=== PATIENT | female | born 1970 | race Caucasian/White ===

== ENCOUNTER 2016-07-14 07:41 | Emergency (ER) | payer BC ==
--- NOTE | 2016-07-14 07:55 | Emergency Department Record ---
History of Present Illness - General Chief complaint: Flu Like Symptoms Stated complaint: I HAVE THE FLU Time Seen by Provider: 07/14/16 07:53 Source: Patient Mode of Arrival: Ambulatory Limitations: No limitations - History of Present Illness Initial comments: The patient is here due to vomiting and diarrhea for about 24 hours. She was diagnosed with Influenza 5 days ago and has been taking Tamiflu up until yesterday. The respiratory symptoms have mainly resolved and she now thinks she has the GI bug. She is having some lower AP but that has been a chronic problem for her due to a hx of Crohn's dz and Gastric Bypass. She recently did have an EGD and Colonoscopy and was diagnosed with Crohn's Dz and also was told her gastric ulcer was improved. MD Complaint: Generalized weakness Onset/Timin -: Days(s) Location: Generalized Severity: Moderate Severity scale (1-10): 6 Quality: Aching Consistency: Constant Improves with: None Worsens with: None Associated Symptoms: Fever/chills, Headaches, Loss of appetite, Nausea/vomiting - Megha Coma Scale Eye Response: (4) Open spontaneously Motor Response: (6) Obeys commands Verbal Response: (5) Oriented Megha Total: 15 - Related Data Home Medications Medication Instructions Recorded Confirmed Last Taken Alprazolam [Alprazolam] 0.5 mg PO QHS 08/14/15 07/14/16 Unknown Hydrochlorothiazide [Hctz 25Mg] 25 mg PO DAILY 08/14/15 07/14/16 12/16/15 Omeprazole [Prilosec] 20 mg PO DAILY 12/17/15 07/14/16 12/16/15 Dextroamphetamine/Amphetamine 20 mg PO DAILY 04/02/16 07/14/16 Unknown [Dextroamp-Amphet ER 20 mg Cap] Trazodone HCl [Desyrel] 50 mg PO QHS 04/02/16 07/14/16 Unknown Vortioxetine Hydrobromide 10 mg PO DAILY 04/02/16 07/14/16 Unknown [Trintellix] Budesonide [Uceris] 9 mg PO ASDIR 07/14/16 07/14/16 Unknown Previous Rx's Medication Instructions Recorded Ondansetron [Zofran Odt] 4 mg SL .Q4-6H PRN #12 tab.rapdis 04/02/16 Allergies Allergy/AdvReac Type Severity Reaction Status Date / Time Penicillins Allergy PT UNSURE Verified 07/14/16 07:55 OF REACTION prochlorperazine AdvReac BEHAVIORAL Verified 07/14/16 08:33 [From Compazine] CHANGES prochlorperazine edisylate AdvReac BEHAVIORAL Verified 07/14/16 08:33 [From Compazine] CHANGES prochlorperazine maleate AdvReac BEHAVIORAL Verified 07/14/16 08:33 [From Compazine] CHANGES Travel Screening - Travel/Exposure Within Last 30 Days Have you traveled within the last 30 days?: No Review of Systems Constitutional: Denies: Chills, Fever Eyes: Denies: Eye discharge ENT: Denies: Congestion Respiratory: Reports: Cough. Denies: Dyspnea Cardiovascular: Denies: Arrhythmia, Chest pain Past Medical History - SOCIAL HISTORY Smoking Status: Never smoker Alcohol Use: None Drug Use: None - RESPIRATORY Hx Respiratory Disorders: No - CARDIOVASCULAR Hx Cardio Disorders: No - NEURO Hx Neuro Disorders: Yes Hx Headaches: Yes Comment:: meniere's - GI Hx GI Disorders: Yes Hx Reflux: Yes Hx Ulcer: Yes Comment:: Chrons - Hx Genitourinary Disorders: Yes Hx Kidney Stones: Yes - ENDOCRINE Hx Endocrine Disorders: No - MUSCULOSKELETAL Hx Musculoskeletal Disorders: No - PSYCH Hx Psych Problems: No - HEMATOLOGY/ONCOLOGY Hx Hematology/Oncology Disorders: No Family Medical History Any Significant Family History?: No Physical Exam - General General Appearance: Alert, Oriented x3, Cooperative, No acute distress - Head Head exam: Atraumatic, Normocephalic, Normal inspection - Eye Eye exam: Normal appearance, PERRL - ENT Throat exam: Normal inspection. negative: Tonsillar erythema, Tonsillar exudate - Neck Neck exam: Normal inspection, Full ROM. negative: Tenderness - Respiratory Respiratory exam: Normal lung sounds bilaterally. negative: Respiratory distress - Cardiovascular Cardiovascular Exam: Regular rate, Normal rhythm, Normal heart sounds - GI/Abdominal GI/Abdominal exam: Soft, Normal bowel sounds, Tenderness (There is mild lower abdominal tenderness but the patient states that has been chronic.). negative: Distended, Organomegaly, Rigid - Extremities Extremities exam: Normal inspection, Full ROM, Normal capillary refill. negative: Tenderness Course Vital Signs 07/14/16 07:44 Temperature 98.7 F Pulse Rate 79 Respiratory 20 Rate Blood Pressure 134/70 Pulse Ox 94 L - Reevaluation(s) Reevaluation #1: The patient is doing better at this time. She denies any AP presently. 07/14/16 9:45 Reevaluation #2: The patient is doing MUCH better now. She denies any nausea, vomiting, or any further loose stools. She denies any AP and on exam her abdomen is very soft and nontender in 4 quads. She is up walking with no issues or pain. I did explain to her that her tests are all WNL. 07/14/16 10:42 Medical Decision Making - Lab Data Result diagrams: 07/14/16 08:29 07/14/16 08:29 Disposition Disposition: Discharge Clinical Impression: Gastroenteritis Disposition: Home, Self-Care Condition: (1) Good Instructions: Influenza (ED) Additional Instructions: Please use your home Zofran if needed and slowly restart your diet with liquids first. Return to the ER for any problems, pain or recurrent vomiting. Forms: Patient Portal Access Time of Disposition: 10:41
[2016-07-14] MEDS ORDERED: ONDANSETRON HCL IV 4 MG/2 ML VIAL IV ONE (08:02)
[2016-07-14] MEDS ORDERED: 0.9 % SODIUM CHLORIDE 1,000 ML BAG IV ONE ×2 (08:02→08:54)
[2016-07-14 08:31] LABS: HEMATOCRIT 39.9 % (35.0-47.0); HEMOGLOBIN 13.1 gm/dl (11.6-16.0); MEAN CELL VOLUME 90.5 fl (81-97); MEAN CORPUSCULAR HEMOGLOBIN 29.7 pg (27-33); MEAN CORPUSCULAR HGB CONC 32.8 g/dl (32-36); MEAN PLATELET VOLUME 10.6 fl (7.4-10.4); PLATELET COUNT 311 K/uL (130-400); RED BLOOD COUNT 4.41 M/uL (3.80-5.40); RED CELL DISTRIBUTION WIDTH 14.3 % (11.5-14.5); WHITE BLOOD COUNT W/O DIFF 10.3 K/uL (4.2-12.2)
[2016-07-14 08:32] LABS: URINE APPEARANCE SL CLOUDY; URINE BILIRUBIN NEGATIVE (NEGATIVE); URINE BLOOD TRACE-I (NEGATIVE); URINE COLOR YELLOW; URINE GLUCOSE (UA) NEGATIVE (NEGATIVE); URINE KETONE NEGATIVE (NEGATIVE); URINE LEUKOCYTE ESTERASE NEGATIVE (NEGATIVE); URINE NITRITE NEGATIVE (NEGATIVE); URINE PROTEIN NEGATIVE (NEGATIVE); URINE UROBILINOGEN 0.2 E.U./dL (0.20 - 1.00)
[2016-07-14] MEDS ORDERED: PROMETHAZINE HCL 25 MG/ML VIAL IVP ONE (08:32)
[2016-07-14] MEDS ORDERED: ACETAMINOPHEN 325 MG TAB PO ONE (08:41)
[2016-07-14 08:44] LABS: URINE BACTERIA NONE SEEN; URINE EPITHELIAL CELLS 0 - 2 (FEW); URINE RBC 0 - 2 (NONE SEEN); URINE WBC NONE SEEN (0-2/hpf)
[2016-07-14 08:56] LABS: BLOOD UREA NITROGEN 11 mg/dL (7-17); GLUCOSE,RANDOM 94 mg/dL (70-110)
[2016-07-14 08:57] LABS: ALBUMIN 3.9 gm/dL (3.5-5.0); ALKALINE PHOSPHATASE 64 U/L (38-126); ALT/SGPT 23 U/L (9-52); AMYLASE 44 U/L (30-110); AST/SGOT 19 U/L (14-36); BILIRUBIN,DIRECT 0.2 mg/dL (0-0.3); CREATININE 0.7 mg/dL (0.52-1.04); EST GLOMERULAR FILTRATION RATE > 60 ml/min
[2016-07-14 08:58] LABS: LIPASE 31 U/L (23-300)
[2016-07-14] MEDS ORDERED: HYDROMORPHONE HCL 1 MG/ML CPJ IVP ONE (09:12)
[2016-07-14] MEDS ORDERED: METOCLOPRAMIDE HCL 10 MG/2 ML VIAL IVP ONE (09:39)
[2016-07-14] MEDS ORDERED: DIPHENHYDRAMINE HCL IV 50 MG/ML VIAL IVP ONE (09:39)
--- NOTE | 2016-07-17 15:35 | RADIOLOGY REPORT ---
EXAM: CHEST 2 VIEWS HISTORY: VOMITING. TECHNIQUE: Two views of the chest were provided along with an abdomen series dated 09/16/2013. FINDINGS: The cardiomediastinal silhouette is within normal limits for size and contour. The dwayne appear unremarkable. There is no radiographic evidence of a focal infiltrate or pleural effusion. No pneumothorax is noted. IMPRESSION: NO RADIOGRAPHIC EVIDENCE OF AN ACUTE INTRATHORACIC PROCESS. JOB NUMBER: [id number] MTDD
== END 2016-07-14 10:42 | disposition home or self-care (01) ==
LOC: ER 07:41
DX: K52.9 Noninfective gastroenteritis and colitis, unspecified (principal); R51 Headache; R53.1 Weakness; R11.2 Nausea with vomiting, unspecified
CPT/HCPCS: 99284 ×2; 96374; 96375; 96361; 82150; 83690; 80076; 80048; 81001; 85027; 71020; J2405; J1170; J1200; J2550; J2765; J7030

== ENCOUNTER 2016-12-08 19:18 | Emergency (ER) | payer BC ==
--- NOTE | 2016-12-08 19:45 | Emergency Department Record ---
History of Present Illness - General Chief Complaint: Headache Migraine Stated Complaint: MIGRAINE Time Seen by Provider: 12/08/16 19:33 Source: Patient Mode of Arrival: Ambulatory Limitations: No limitations - History of Present Illness Initial Comments: The patient is here due to a 9 day hx of a headache. The pain started in the neck and back of the head and does travel to the frontal area at times. She does have mild photophobia and nausea but no vomiting, or blurred vision. The patient has a long hx of chronic LIEBERMAN's which are similar to this and recently missed an appointment to get her botox injections for her headaches. She has had a full workup for migraines which she reports all is neg. The patient states she has been under a lot of stress recently at work due to a recent computer upgrade and is doing a lot more work in front of the screen than she normally does. MD Complaint: Headache Onset/Timin -: Days(s) Onset Description: Gradual Location: Frontal, Occipital Severity scale (1-10): 7 Quality: Aching Consistency: Constant, Getting worse Improves With: Nothing Worsens With: Light Associated Symptoms: Photophobia Treatments Prior to Arrival: Antiemetic, Migraine medication - Related Data Home Medications Medication Instructions Recorded Confirmed Last Taken Hydrochlorothiazide [Hctz 25Mg] 25 mg PO DAILY 08/14/15 12/08/16 12/16/15 Omeprazole [Prilosec] 20 mg PO DAILY 12/17/15 12/08/16 12/16/15 Dextroamphetamine/Amphetamine 20 mg PO DAILY 04/02/16 12/08/16 Unknown [Dextroamp-Amphet ER 20 mg Cap] Trazodone HCl [Desyrel] 50 mg PO QHS 04/02/16 12/08/16 Unknown Vortioxetine Hydrobromide 10 mg PO DAILY 04/02/16 12/08/16 Unknown [Trintellix] Clonazepam [Klonopin] 0.5 mg PO QHS PRN 12/08/16 12/08/16 Unknown Previous Rx's Medication Instructions Recorded Ondansetron [Zofran Odt] 4 mg SL .Q4-6H PRN #12 tab.rapdis 04/02/16 Allergies Allergy/AdvReac Type Severity Reaction Status Date / Time Penicillins Allergy PT UNSURE Verified 07/14/16 07:55 OF REACTION prochlorperazine AdvReac BEHAVIORAL Verified 07/14/16 08:33 [From Compazine] CHANGES prochlorperazine edisylate AdvReac BEHAVIORAL Verified 07/14/16 08:33 [From Compazine] CHANGES prochlorperazine maleate AdvReac BEHAVIORAL Verified 07/14/16 08:33 [From Compazine] CHANGES Travel Screening - Travel/Exposure Within Last 30 Days Have you traveled within the last 30 days?: No Past Medical History - SOCIAL HISTORY Smoking Status: Never smoker Alcohol Use: Occasional Drug Use: None - RESPIRATORY Hx Respiratory Disorders: No - CARDIOVASCULAR Hx Cardio Disorders: No - NEURO Hx Neuro Disorders: Yes Hx Headaches: Yes Comment:: meniere's - GI Hx GI Disorders: Yes Hx Reflux: Yes Hx Ulcer: Yes Comment:: Chrons - Hx Genitourinary Disorders: Yes Hx Kidney Stones: Yes - ENDOCRINE Hx Endocrine Disorders: No - MUSCULOSKELETAL Hx Musculoskeletal Disorders: No - PSYCH Hx Psych Problems: No - HEMATOLOGY/ONCOLOGY Hx Hematology/Oncology Disorders: No Family Medical History Any Significant Family History?: No Physical Exam - General General Appearance: Alert, Oriented x3, Cooperative, No acute distress - Head Head exam: Atraumatic, Normocephalic, Normal inspection - Eye Eye exam: Normal appearance, PERRL - ENT Throat exam: Normal inspection. negative: Tonsillar erythema, Tonsillar exudate - Neck Neck exam: Normal inspection, Full ROM, Tenderness (to the posterior cervical muscle areas bilaterally.) - Respiratory Respiratory exam: Normal lung sounds bilaterally. negative: Respiratory distress - Cardiovascular Cardiovascular Exam: Regular rate, Normal rhythm, Normal heart sounds - GI/Abdominal GI/Abdominal exam: Soft, Normal bowel sounds. negative: Tenderness - Back Back exam: Reports: Muscle spasm (to the cervical region. Palpation to this area does reproduce the pain.) - Neurological Neurological exam: Alert, Normal gait, Oriented X3. negative: Abnormal gait, Motor sensory deficit - Psychiatric Psychiatric exam: negative: Agitated, Anxious Course Vital Signs 12/08/16 19:24 Temperature 98.2 F Pulse Rate [ 88 Pulse Ox Probe] Respiratory 20 Rate Blood Pressure 147/84 [Left Arm] Pulse Ox 95 - Reevaluation(s) Reevaluation #1: The patient is doing a lot better at this time. Her pain is 100% resolved and she is ready for home. 12/08/16 20:49 Disposition Disposition: Discharge Clinical Impression: Headache Qualifiers: Headache type: unspecified Headache chronicity pattern: acute headache Intractability: not intractable Qualified Code(s): R51 - Headache Disposition: Home, Self-Care Condition: (1) Good Instructions: Acute Headache (ED) Additional Instructions: Please continue your regular medicines for pain. Please see your doctor if not better tomorrow. Return to the ER if worse. Forms: Patient Portal Access Time of Disposition: 20:50 Quality - Quality Measures Quality Measures: Headache - Headache: Neuroimaging Quality Measure: Measure #419: Overuse of Neuroimaging View Detail: Yes Headache: Use of Neuroimaging: < CTA, CT, MRA or MRI was NOT ordered > [G9534] Neurological Exam: Patient had a normal neurological exam. [G9535] - Blood Pressure Screening View Details: Yes Blood Pressure Classification: Pre-Hypertensive BP Reading Systolic Measurement: 147 Diastolic Measurement: 84 Screening for High Blood Pressure: < Pre-Hypertensive BP, F/U Documented > [ G8950] Pre-Hypertensive Follow-up Interventions: Follow-up with rescreen every year.
[2016-12-08] MEDS: METOCLOPRAMIDE HCL 10 MG/2 ML VIAL IVP ONE (19:59)
[2016-12-08] MEDS: DIPHENHYDRAMINE HCL IV 50 MG/ML VIAL IVP ONE (20:00)
[2016-12-08] MEDS: KETOROLAC 30 MG/ML VIAL IVP ONE (20:01)
[2016-12-08] MEDS: 0.9 % SODIUM CHLORIDE 1,000 ML BAG IV ONE (20:01)
[2016-12-08] MEDS: METHYLPREDNISOLONE PF 125MG/VIAL IVP ONE (20:18)
== END 2016-12-08 20:58 | disposition home or self-care (01) ==
LOC: ER 19:18
DX: R51 Headache (principal); R11.0 Nausea; H53.149 Visual discomfort, unspecified
CPT/HCPCS: 96374; 96375; 99284; J1200; J1885; J2765; J2930; J7030

== ENCOUNTER 2016-12-27 11:21 | Emergency (ER) | payer BC ==
[2016-12-27] MEDS ORDERED: KETOROLAC 30 MG/ML VIAL IVP ONE (12:45)
[2016-12-27] MEDS ORDERED: DIPHENHYDRAMINE HCL IV 50 MG/ML VIAL IVP ONE (12:45)
[2016-12-27] MEDS ORDERED: 0.9 % SODIUM CHLORIDE 1,000 ML BAG IV ONE (12:45)
[2016-12-27] MEDS ORDERED: METOCLOPRAMIDE HCL 10 MG/2 ML VIAL IVP ONE (12:45)
--- NOTE | 2016-12-27 13:06 | Emergency Department Record ---
History of Present Illness - General Chief Complaint: Headache Migraine Stated Complaint: MIGRAINE Time Seen by Provider: 12/27/16 12:09 Source: Patient Mode of Arrival: Ambulatory Limitations: No limitations - History of Present Illness Initial Comments: pt states she is having her typical migraine. she sees a neurologist and hads had cts and mris Onset/Timin -: Hour(s) Onset Description: Awoke with symptoms Location: Left, Neck, Retro-orbital Severity scale (1-10): 7 Quality: Throbbing Consistency: Constant Improves With: Nothing Worsens With: Light, Noise Associated Symptoms: Neck stiffness, Photophobia Treatments Prior to Arrival: None - Related Data Home Medications Medication Instructions Recorded Confirmed Last Taken Hydrochlorothiazide [Hctz 25Mg] 25 mg PO DAILY 08/14/15 12/27/16 12/27/16 Omeprazole [Prilosec] 20 mg PO DAILY 12/17/15 12/27/16 12/27/16 Dextroamphetamine/Amphetamine 20 mg PO DAILY 04/02/16 12/27/16 12/27/16 [Dextroamp-Amphet ER 20 mg Cap] Trazodone HCl [Desyrel] 50 mg PO QHS 04/02/16 12/27/16 12/27/16 Vortioxetine Hydrobromide 10 mg PO DAILY 04/02/16 12/27/16 12/27/16 [Trintellix] Clonazepam [Klonopin] 0.5 mg PO QHS PRN 12/08/16 12/27/16 12/27/16 Lidocaine [Lidocaine] 1 each TOP ASDIR PRN 12/27/16 12/27/16 12/06/16 Previous Rx's Medication Instructions Recorded Ondansetron [Zofran Odt] 4 mg SL .Q4-6H PRN #12 tab.rapdis 04/02/16 Allergies Allergy/AdvReac Type Severity Reaction Status Date / Time Penicillins Allergy PT UNSURE Verified 12/27/16 11:38 OF REACTION prochlorperazine AdvReac BEHAVIORAL Verified 12/27/16 11:38 [From Compazine] CHANGES prochlorperazine edisylate AdvReac BEHAVIORAL Verified 12/27/16 11:38 [From Compazine] CHANGES prochlorperazine maleate AdvReac BEHAVIORAL Verified 12/27/16 11:38 [From Compazine] CHANGES Travel Screening - Travel/Exposure Within Last 30 Days Have you traveled within the last 30 days?: No - Travel/Exposure Within Last Year Have you traveled outside the [place] in the last year?: No - Additonal Travel Details Have you been exposed to anyone with a communicable illness?: No - Travel Symptoms Symptom Screening: None Review of Systems Reviewed: No additional complaints except as noted below Constitutional: Reports: As per HPI. Denies: Chills, Fever, Malaise, Night sweats, Weakness, Weight change Eyes: Reports: As per HPI. Denies: Eye discharge, Eye pain, Photophobia, Vision change ENT: Reports: As per HPI. Denies: Congestion, Dental pain, Ear pain, Epistaxis , Hearing loss, Throat pain Respiratory: Reports: As per HPI. Denies: Cough, Dyspnea, Hemoptysis, Stridor, Wheezes Cardiovascular: Reports: As per HPI. Denies: Arrhythmia, Chest pain, Dyspnea on exertion, Edema, Murmurs, Orthopnea, Palpitations, Paroxysmal nocturnal dyspnea, Rheumatic Fever, Syncope Endocrine: Reports: As per HPI. Denies: Fatigue, Heat or cold intolerance, Polydipsia, Polyuria Gastrointestinal: Reports: As per HPI. Denies: Abdominal pain, Constipation, Diarrhea, Hematemesis, Hematochezia, Melena, Nausea, Vomiting Genitourinary: Reports: As per HPI. Denies: Abnormal menses, Discharge, Dyspareunia, Dysuria, Frequency, Hematuria, Incontinence, Retention, Urgency Musculoskeletal: Reports: As per HPI. Denies: Arthralgia, Back pain, Gout, Joint swelling, Myalgia, Neck pain Skin: Reports: As per HPI. Denies: Bruising, Change in color, Change in hair/ nails, Lesions, Pruritus, Rash Neurological: Reports: As per HPI. Denies: Abnormal gait, Confusion, Headache, Numbness, Paresthesias, Seizure, Tingling, Tremors, Vertigo, Weakness Psychiatric: Reports: As per HPI. Denies: Anxiety, Auditory hallucinations, Depression, Homicidal thoughts, Suicidal thoughts, Visual hallucinations Hematological/Lymphatic: Reports: As per HPI. Denies: Anemia, Blood Clots, Easy bleeding, Easy bruising, Swollen glands Past Medical History - SOCIAL HISTORY Smoking Status: Never smoker Alcohol Use: Occasional Drug Use: None - RESPIRATORY Hx Respiratory Disorders: No - CARDIOVASCULAR Hx Cardio Disorders: No - NEURO Hx Neuro Disorders: Yes Hx Headaches: Yes Comment:: meniere's - GI Hx GI Disorders: Yes Hx Reflux: Yes Hx Ulcer: Yes Comment:: Chrons - Hx Genitourinary Disorders: Yes Hx Kidney Stones: Yes - ENDOCRINE Hx Endocrine Disorders: No - MUSCULOSKELETAL Hx Musculoskeletal Disorders: No - PSYCH Hx Psych Problems: No - HEMATOLOGY/ONCOLOGY Hx Hematology/Oncology Disorders: No Family Medical History Any Significant Family History?: No Physical Exam - General General Appearance: Alert, Oriented x3, Cooperative, Mild distress - Head Head exam: Normal inspection - Eye Eye exam: Normal appearance, PERRL, EOMI Pupils: Normal accommodation - ENT ENT exam: Normal exam, Mucous membranes moist, Normal external ear exam, Normal orophraynx Ear exam: Normal external inspection. negative: External canal tenderness Nasal Exam: Normal inspection. negative: Discharge, Sinus tenderness Mouth exam: Normal external inspection, Tongue normal Teeth exam: Normal inspection. negative: Dental caries Throat exam: Normal inspection. negative: Tonsillar erythema, Tonsillar exudate - Neck Neck exam: Normal inspection, Full ROM. negative: Tenderness - Respiratory Respiratory exam: Normal lung sounds bilaterally. negative: Respiratory distress - Cardiovascular Cardiovascular Exam: Regular rate, Normal rhythm, Systolic murmur - GI/Abdominal GI/Abdominal exam: Soft, Normal bowel sounds. negative: Tenderness - Rectal Rectal exam: Deferred - exam: Deferred - Extremities Extremities exam: Normal inspection, Full ROM, Normal capillary refill. negative: Tenderness - Back Back exam: Reports: Normal inspection, Full ROM. Denies: Muscle spasm, Rash noted, Tenderness - Neurological Neurological exam: Alert, CN II-XII intact, Normal gait, Oriented X3 - Psychiatric Psychiatric exam: Normal affect, Normal mood - Skin Skin exam: Dry, Intact, Normal color, Warm Course Vital Signs 12/27/16 11:43 Temperature 98.6 F Pulse Rate 94 H Respiratory 18 Rate Blood Pressure 136/91 Pulse Ox 98 - Reevaluation(s) Reevaluation #1: 12/27/16 13:03 pt feels better Disposition Disposition: Discharge Clinical Impression: Migraine Qualifiers: Migraine type: unspecified Status migrainosus presence: without status migrainosus Intractability: not intractable Qualified Code(s): G43.909 - Migraine, unspecified, not intractable, without status migrainosus Disposition: Home, Self-Care Condition: (1) Good Instructions: Migraine Headache (ED) Additional Instructions: follow up with neurologist. return sooner if worse Forms: Patient Portal Access Quality - Quality Measures Quality Measures: N/A - Blood Pressure Screening Does Patient Have Any of the Following: No Blood Pressure Classification: Hypertensive Reading Systolic Measurement: 136 Diastolic Measurement: 91 Screening for High Blood Pressure: < Pre-Hypertensive BP, F/U Documented > [ G8950] Pre-Hypertensive Follow-up Interventions: Follow-up with rescreen every year.
[2016-12-27] MEDS ORDERED: METHYLPREDNISOLONE PF 125MG/VIAL IVP ONE (13:30)
== END 2016-12-27 14:26 | disposition home or self-care (01) ==
LOC: ER 11:21
DX: G43.909 Migraine, unspecified, not intractable, without status migrainosus (principal); M43.6 Torticollis; H53.149 Visual discomfort, unspecified
CPT/HCPCS: 99284 ×2; 96374; 96375; J1885; J1200; J2765; J2930; J7030

== ENCOUNTER 2016-12-28 01:41 | Emergency (ER) | payer BC ==
--- NOTE | 2016-12-28 01:44 | Emergency Department Record ---
History of Present Illness - General Chief Complaint: Chest Pain Stated Complaint: CHEST PAIN Time Seen by Provider: 12/28/16 01:44 Source: Patient - History of Present Illness Initial Comments: The patient was asleep in bed, and awakened by a dull left of center anterior chest pain radiating "sharp"ly through to her back, associated with nausea and SOB. It radiated down her left arm and included her lateral left neck. She took 324 aspirin. The time was about 12:50 a.m. She had some episodes in the past of elevated BP; Risks: Never smoker, no DM, no elevated cholesterol, FH of mom having MO in her 60's. She states she has a functional heart murmur from MVP which showed on an ECHO. She denies history of PE , DVT. MD Complaint: Chest pain - Related Data Home Medications Medication Instructions Recorded Confirmed Last Taken Hydrochlorothiazide [Hctz 25Mg] 25 mg PO DAILY 08/14/15 12/28/16 12/27/16 Omeprazole [Prilosec] 20 mg PO DAILY 12/17/15 12/28/16 12/27/16 Dextroamphetamine/Amphetamine 20 mg PO DAILY 04/02/16 12/28/16 12/27/16 [Dextroamp-Amphet ER 20 mg Cap] Trazodone HCl [Desyrel] 50 mg PO QHS 04/02/16 12/28/16 12/27/16 Vortioxetine Hydrobromide 10 mg PO DAILY 04/02/16 12/28/16 12/27/16 [Trintellix] Clonazepam [Klonopin] 0.5 mg PO QHS PRN 12/08/16 12/28/16 12/27/16 Lidocaine [Lidocaine] 1 each TOP ASDIR PRN 12/27/16 12/28/16 12/06/16 Previous Rx's Medication Instructions Recorded Ondansetron [Zofran Odt] 4 mg SL .Q4-6H PRN #12 tab.rapdis 04/02/16 Allergies Allergy/AdvReac Type Severity Reaction Status Date / Time Penicillins Allergy PT UNSURE Verified 12/28/16 01:52 OF REACTION prochlorperazine AdvReac BEHAVIORAL Verified 12/28/16 01:52 [From Compazine] CHANGES prochlorperazine edisylate AdvReac BEHAVIORAL Verified 12/28/16 01:52 [From Compazine] CHANGES prochlorperazine maleate AdvReac BEHAVIORAL Verified 12/28/16 01:52 [From Compazine] CHANGES Review of Systems Reviewed: No additional complaints except as noted below Constitutional: Reports: As per HPI. Denies: Chills, Fever, Malaise, Night sweats, Weakness, Weight change Eyes: Reports: As per HPI. Denies: Eye discharge, Eye pain, Photophobia, Vision change ENT: Reports: As per HPI. Denies: Congestion, Dental pain, Ear pain, Epistaxis , Hearing loss, Throat pain Respiratory: Reports: As per HPI. Denies: Cough, Dyspnea, Hemoptysis, Stridor, Wheezes Cardiovascular: Reports: As per HPI. Denies: Arrhythmia, Chest pain, Dyspnea on exertion, Edema, Murmurs, Orthopnea, Palpitations, Paroxysmal nocturnal dyspnea, Rheumatic Fever, Syncope Endocrine: Reports: As per HPI. Denies: Fatigue, Heat or cold intolerance, Polydipsia, Polyuria Gastrointestinal: Reports: As per HPI. Denies: Abdominal pain, Constipation, Diarrhea, Hematemesis, Hematochezia, Melena, Nausea, Vomiting Genitourinary: Reports: As per HPI. Denies: Abnormal menses, Discharge, Dyspareunia, Dysuria, Frequency, Hematuria, Incontinence, Retention, Urgency Musculoskeletal: Reports: As per HPI. Denies: Arthralgia, Back pain, Gout, Joint swelling, Myalgia, Neck pain Skin: Reports: As per HPI. Denies: Bruising, Change in color, Change in hair/ nails, Lesions, Pruritus, Rash Neurological: Reports: As per HPI. Denies: Abnormal gait, Confusion, Headache, Numbness, Paresthesias, Seizure, Tingling, Tremors, Vertigo, Weakness Psychiatric: Reports: As per HPI. Denies: Anxiety, Auditory hallucinations, Depression, Homicidal thoughts, Suicidal thoughts, Visual hallucinations Hematological/Lymphatic: Reports: As per HPI. Denies: Anemia, Blood Clots, Easy bleeding, Easy bruising, Swollen glands Past Medical History - SOCIAL HISTORY Smoking Status: Never smoker Drug Use: None - RESPIRATORY Hx Respiratory Disorders: No - CARDIOVASCULAR Hx Cardio Disorders: No - NEURO Hx Neuro Disorders: Yes Hx Headaches: Yes Comment:: meniere's - GI Hx GI Disorders: Yes Hx Reflux: Yes Hx Ulcer: Yes Comment:: Chrons - Hx Genitourinary Disorders: Yes Hx Kidney Stones: Yes - ENDOCRINE Hx Endocrine Disorders: No - MUSCULOSKELETAL Hx Musculoskeletal Disorders: No - PSYCH Hx Psych Problems: No - HEMATOLOGY/ONCOLOGY Hx Hematology/Oncology Disorders: No Physical Exam - General General Appearance: Alert, Oriented x3, Cooperative, Mild distress, Anxious ( keeps eyes closed, poor eye contact) - Head Head exam: Normal inspection - Eye Eye exam: Normal appearance, PERRL, EOMI Pupils: Normal accommodation - ENT ENT exam: Normal exam, Mucous membranes moist, Normal external ear exam, Normal orophraynx, TM's normal bilaterally Ear exam: Normal external inspection. negative: External canal tenderness Nasal Exam: Normal inspection. negative: Discharge, Sinus tenderness Mouth exam: Normal external inspection, Tongue normal Teeth exam: Normal inspection. negative: Dental caries Throat exam: Normal inspection. negative: Tonsillar erythema, Tonsillar exudate - Neck Neck exam: Normal inspection, Full ROM. negative: Lymphadenopathy, Meningismus , Tenderness - Respiratory Respiratory exam: Normal lung sounds bilaterally. negative: Accessory muscle use, Chest wall tenderness, Prolonged expiratory, Rales, Respiratory distress, Wheezes - Cardiovascular Cardiovascular Exam: Regular rate, Normal rhythm, Normal heart sounds - GI/Abdominal GI/Abdominal exam: Soft, Normal bowel sounds. negative: Tenderness - Rectal Rectal exam: Deferred - exam: Deferred - Extremities Extremities exam: Normal inspection, Full ROM, Normal capillary refill. negative: Calf tenderness, Pedal edema, Tenderness - Back Back exam: Reports: Normal inspection, Full ROM. Denies: CVA tenderness (R), CVA tenderness (L), Muscle spasm, Rash noted, Tenderness - Neurological Neurological exam: Alert, CN II-XII intact, Normal gait, Oriented X3, Reflexes normal - Psychiatric Psychiatric exam: Anxious, Normal affect, Normal mood - Skin Skin exam: Dry, Intact, Normal color, Warm. negative: Diaphoretic Course - Reevaluation(s) Reevaluation #1: Patient states that the nitro trial didn't help. Her sharp pain into the left back has not changed and is not pleuritic, she says. Her dull anterior pain 7/ 10 is unchanged and worsens with a deep breath. She is asking if she needs to be admitted despite having been told several times that we don't make a decision until all labs are back. Patient wants to know what happens if she just leaves. 12/28/16 02:37 12/28/16 02:41 Reevaluation #2: Patient states she came here earlier for a migraine around 11:30 and left around 2:30 but was not much better. She took a nap, and then cleaned her house , and did yard work of trimming bushes, using round up and blower machine. 12/28/16 02:42 Reevaluation #3: The patient returned from xray stating her anterior chest symptoms were beginning to dissipate, but her left back symptoms were unchanged. She was told of her low TSH of 0.29, which means she may have hyperthyroidism. She wanted to know her T3 and T4 but she was told that her PCP should follow that. She stated she works at an [employer]. 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 She was tucked in to bed and the lights turned off after receiving a GI cocktail. 12/28/16 03:16 Reevaluation #4: The patient is requesting that we check her full thyroid tests because she has other endocrine diseases, such as crohn's. I explained that her PCP is to follow the thyroid and any other work ups that are non-emergent. She was given tylenol for her headache but states it isn't any better. Patient wishes to leave AMA. She declined to have a repeat troponin and wants to go home immediately. Patient aware she is to sign out AMA. She was told that if she changes her mind she is free to return here. She is requesting an off work note for today. I told her leaving AMA makes that impossible. She walked out without signing papers as soon as her IV was removed. 12/28/16 04:29 12/28/16 04:38 Medical Decision Making - Management Options MDM Management: No Additional Work-up Planned (LEAVING AMA) - Data Complexity MDM Data: Labs Ordered and/or Reviewed, X-Ray Ordered and/or Reviewed (Two view CXR: Neg per ED physician.), EKG Ordered and/or Reviewed - Lab Data Result diagrams: 12/28/16 01:59 12/28/16 01:59 - EKG Data -: EKG Interpreted by Me EKG: No Acute Changes (nonspecific ST changes, no ST elevation) Disposition Disposition: Other (AMA) Clinical Impression: Chest pain Qualifiers: Chest pain type: unspecified Qualified Code(s): R07.9 - Chest pain, unspecified Disposition: Against Medical Advice Condition: (1) Good Additional Instructions: Return if you change your mind. See your PCP today for completion of work up and for recheck. Forms: Patient Portal Access Quality - Quality Measures Quality Measures: N/A - Blood Pressure Screening Does Patient Have Any of the Following: No Blood Pressure Classification: Pre-Hypertensive BP Reading Systolic Measurement: 138 Diastolic Measurement: 84 Screening for High Blood Pressure: < Normal BP, F/U Not Required > [G8783]
[2016-12-28] MEDS: NITROGLYCERIN 0.4MG SL TABLET #25 BTL SL PRN ×3 (02:06→02:19)
[2016-12-28 02:12] LABS: BASO % 0.1 % (0-6); HEMATOCRIT 38.8 % (35.0-47.0); HEMOGLOBIN 12.7 gm/dl (11.6-16.0); LYMPH % 7.4 % (16-45); MEAN CORPUSCULAR HEMOGLOBIN 28.8 pg (27-33); MEAN CORPUSCULAR HGB CONC 32.7 g/dl (32-36); MEAN PLATELET VOLUME 11.3 fl (7.4-10.4); MONO % 0.9 % (0-9); PLATELET COUNT 303 K/uL (130-400); RED BLOOD COUNT 4.41 M/uL (3.80-5.40); RED CELL DISTRIBUTION WIDTH 14.6 % (11.5-14.5); WHITE BLOOD COUNT W/O DIFF 8.6 K/uL (4.2-12.2)
[2016-12-28 02:18] LABS: ANION GAP 11.3 (7-16); BLOOD UREA NITROGEN 23 mg/dL (7-17); CARBON DIOXIDE 21.7 mmol/L (22-30); CREATININE 0.8 mg/dL (0.52-1.04); EST GLOMERULAR FILTRATION RATE > 60 ml/min; GLUCOSE,RANDOM 156 mg/dL (70-110)
[2016-12-28 02:22] LABS: INR 0.96; PARTIAL THROMBOPLASTIN TIME 26.8 SECONDS (24.5-39.1); PROTHROMBIN TIME (PATIENT) 10.4 SECONDS (9.5-12.1)
[2016-12-28 02:23] LABS: D-DIMER 0.21 mg/L FEU (0-0.59)
[2016-12-28 02:35] LABS: TROPONIN I < 0.012 ng/mL (0.00-0.034)
[2016-12-28] MEDS ORDERED: KETOROLAC 30 MG/ML VIAL IVP ONE (02:41)
[2016-12-28 02:49] LABS: THYROID STIMULATING HORMONE 0.29 uIU/ml (0.465-4.68)
[2016-12-28] MEDS ORDERED: POTASSIUM CHLORIDE 20 MEQ TABLET PO ONE (02:51)
[2016-12-28 03:04] LABS: AMPHETAMINE SCREEN URINE DETECTED; BARBITURATE SCREEN URINE NOT DETECTED; BENZODIAZEPINE SCREEN URINE DETECTED; COCAINE SCREEN URINE NOT DETECTED; METHADONE SCREEN URINE NOT DETECTED; METHAMPHETAMINE SCREEN NOT DETECTED; OPIATE SCREEN URINE NOT DETECTED; OXYCODONE SCREEN URINE NOT DETECTED; PHENCYCLIDINE SCREEN URINE NOT DETECTED; PROPOXYPHENE SCREEN URINE NOT DETECTED; THC SCREEN URINE NOT DETECTED; TRICYCLIC ANTIDEPRESSANT SCRN NOT DETECTED
[2016-12-28] MEDS ORDERED: MAGNESIUM HYDROXIDE/AL HYDROX 30 ML, LIDOCAINE VISC 2% 200 MG PO ONE ×2 (03:08)
[2016-12-28] MEDS ORDERED: ACETAMINOPHEN 325 MG TAB PO ONE (04:05)
--- NOTE | 2016-12-29 11:27 | RADIOLOGY REPORT ---
EXAM: CHEST HISTORY: CHEST PAIN. TECHNIQUE: Frontal and lateral views of the chest were performed. Comparison: 07/14/16. FINDINGS: The heart size is normal. The lung alcazar are clear. The osseous structures are normal. IMPRESSION: NEGATIVE CHEST EXAMINATION. JOB NUMBER: [id number] MTDD
== END 2016-12-28 04:45 | disposition left against medical advice (07) ==
LOC: ER 01:41
DX: R07.9 Chest pain, unspecified (principal); R11.0 Nausea; R06.02 Shortness of breath; R51 Headache; M54.9 Dorsalgia, unspecified
CPT/HCPCS: 99284 ×2; 96374; 85730; 85610; 84484; 80048; 84443; 80305; 85379; 85027; 83880; 71020; 93005; J1885

== ENCOUNTER 2017-05-11 16:17 | Emergency (ER) | payer BC ==
[2017-05-11] MEDS ORDERED: ONDANSETRON HCL IV 4 MG/2 ML VIAL IV ONE (17:46)
[2017-05-11] MEDS ORDERED: 0.9 % SODIUM CHLORIDE 1,000 ML BAG IV ONE (17:46)
[2017-05-11] MEDS ORDERED: HYDROMORPHONE HCL 1 MG/ML SYRINGE IVP ONE ×3 (17:49→22:45)
[2017-05-11 17:58] LABS: BASO % 0.4 % (0-6); EOS % 1.7 % (0-6); GRAN % 75.6 % (47-80); HEMATOCRIT 45.2 % (35.0-47.0); LYMPH % 17.2 % (16-45); MEAN CELL VOLUME 87.4 fl (81-97); MEAN CORPUSCULAR HEMOGLOBIN 27.1 pg (27-33); MEAN PLATELET VOLUME 11.1 fl (7.4-10.4); MONO % 5.1 % (0-9); PLATELET COUNT 280 K/uL (130-400); RED BLOOD COUNT 5.17 M/uL (3.80-5.40); RED CELL DISTRIBUTION WIDTH 14.7 % (11.5-14.5); WHITE BLOOD COUNT W/O DIFF 8.4 K/uL (4.2-12.2)
[2017-05-11 18:11] LABS: BLOOD UREA NITROGEN 8 mg/dL (6-20); CREATININE 0.7 mg/dL (0.5-0.9); EST GLOMERULAR FILTRATION RATE > 60 mL/min
[2017-05-11 18:14] LABS: GLUCOSE,RANDOM 102 mg/dL (74-109)
[2017-05-11 18:17] LABS: LIPASE 22 U/L (13-60)
--- NOTE | 2017-05-11 18:22 | Emergency Department Record ---
History of Present Illness - General Source: Patient Mode of Arrival: Ambulatory Limitations: No limitations - History of Present Illness Initial Comments: pt states she has had a flare up of crohns for a month. she has ap, vomiting, bloody diarrhea. MD Complaint: Abdominal pain Onset/Timin -: Week(s) Location: Diffuse Radiation: None Severity: Severe Quality: Sharp Consistency: Constant Improves With: Nothing Worsens With: Nothing Associated Symptoms: Diarrhea, Nausea, Vomiting - Related Data Patient : No <Justina Srivastava - Last Filed: 05/11/17 19:14> <ERIK ALDANA - Last Filed: 05/11/17 23:05> - General Chief Complaint: Abdominal Pain Stated Complaint: ABDOMINAL PAIN Time Seen by Provider: 05/11/17 17:38 - Related Data Home Medications Medication Instructions Recorded Confirmed Last Taken Ergocalciferol (Vitamin D2) 50,000 unit PO WEEKLY 05/11/17 05/11/17 Unknown [Vitamin D2] Previous Rx's Medication Instructions Recorded Ondansetron [Zofran Odt] 4 mg SL .Q4-6H PRN #12 tab.rapdis 04/02/16 Hydrocodone/Acetaminophen [[place] 1 each PO Q8H #18 tablet 05/11/17 5-325 Tablet] Ondansetron [Zofran Odt] 4 mg PO Q8H #15 tab.rapdis 05/11/17 Allergies Allergy/AdvReac Type Severity Reaction Status Date / Time Penicillins Allergy PT UNSURE Verified 12/28/16 01:52 OF REACTION prochlorperazine AdvReac BEHAVIORAL Verified 12/28/16 01:52 [From Compazine] CHANGES prochlorperazine edisylate AdvReac BEHAVIORAL Verified 12/28/16 01:52 [From Compazine] CHANGES prochlorperazine maleate AdvReac BEHAVIORAL Verified 12/28/16 01:52 [From Compazine] CHANGES Travel Screening - Travel/Exposure Within Last 30 Days Have you traveled within the last 30 days?: No <Justina Srivastava - Last Filed: 05/11/17 19:14> Review of Systems Reviewed: No additional complaints except as noted below Constitutional: Reports: As per HPI, Weakness. Denies: Chills, Fever, Malaise, Night sweats, Weight change Eyes: Reports: As per HPI. Denies: Eye discharge, Eye pain, Photophobia, Vision change ENT: Reports: As per HPI. Denies: Congestion, Dental pain, Ear pain, Epistaxis , Hearing loss, Throat pain Respiratory: Reports: As per HPI. Denies: Cough, Dyspnea, Hemoptysis, Stridor, Wheezes Cardiovascular: Reports: As per HPI. Denies: Arrhythmia, Chest pain, Dyspnea on exertion, Edema, Murmurs, Orthopnea, Palpitations, Paroxysmal nocturnal dyspnea, Rheumatic Fever, Syncope Endocrine: Reports: As per HPI. Denies: Fatigue, Heat or cold intolerance, Polydipsia, Polyuria Gastrointestinal: Reports: As per HPI, Abdominal pain, Diarrhea, Hematochezia, Nausea, Vomiting. Denies: Constipation, Hematemesis, Melena Genitourinary: Reports: As per HPI. Denies: Abnormal menses, Discharge, Dyspareunia, Dysuria, Frequency, Hematuria, Incontinence, Retention, Urgency Musculoskeletal: Reports: As per HPI. Denies: Arthralgia, Back pain, Gout, Joint swelling, Myalgia, Neck pain Skin: Reports: As per HPI. Denies: Bruising, Change in color, Change in hair/ nails, Lesions, Pruritus, Rash Neurological: Reports: As per HPI. Denies: Abnormal gait, Confusion, Headache, Numbness, Paresthesias, Seizure, Tingling, Tremors, Vertigo, Weakness Psychiatric: Reports: As per HPI. Denies: Anxiety, Auditory hallucinations, Depression, Homicidal thoughts, Suicidal thoughts, Visual hallucinations Hematological/Lymphatic: Reports: As per HPI. Denies: Anemia, Blood Clots, Easy bleeding, Easy bruising, Swollen glands <Justina Srivastava - Last Filed: 05/11/17 19:14> Past Medical History - SOCIAL HISTORY Smoking Status: Never smoker Alcohol Use: None Drug Use: None - RESPIRATORY Hx Respiratory Disorders: No - CARDIOVASCULAR Hx Cardio Disorders: No - NEURO Hx Neuro Disorders: Yes Hx Headaches: Yes Comment:: meniere's - GI Hx GI Disorders: Yes Hx Crohn's Disease: Yes Hx Reflux: Yes Hx Ulcer: Yes - Hx Genitourinary Disorders: Yes Hx Kidney Stones: Yes - ENDOCRINE Hx Endocrine Disorders: No - MUSCULOSKELETAL Hx Musculoskeletal Disorders: No - PSYCH Hx Psych Problems: No - HEMATOLOGY/ONCOLOGY Hx Hematology/Oncology Disorders: Yes Hx Anemia: Yes <Justina Srivastava - Last Filed: 05/11/17 19:14> Family Medical History Any Significant Family History?: No <Justina Srivastava - Last Filed: 05/11/17 19:14> Physical Exam - General General Appearance: Alert, Oriented x3, Cooperative, Mild distress - Head Head exam: Normal inspection - Eye Eye exam: Normal appearance, PERRL, EOMI Pupils: Normal accommodation - ENT ENT exam: Normal exam, Mucous membranes moist, Normal external ear exam, Normal orophraynx Ear exam: Normal external inspection. negative: External canal tenderness Nasal Exam: Normal inspection. negative: Discharge, Sinus tenderness Mouth exam: Normal external inspection, Tongue normal Teeth exam: Normal inspection. negative: Dental caries Throat exam: Normal inspection. negative: Tonsillar erythema, Tonsillar exudate - Neck Neck exam: Normal inspection, Full ROM. negative: Tenderness - Respiratory Respiratory exam: Normal lung sounds bilaterally. negative: Respiratory distress - Cardiovascular Cardiovascular Exam: Regular rate, Normal rhythm, Normal heart sounds - GI/Abdominal GI/Abdominal exam: Soft, Normal bowel sounds, Tenderness - Rectal Rectal exam: Heme (-) stool - exam: Deferred - Extremities Extremities exam: Normal inspection, Full ROM, Normal capillary refill. negative: Tenderness - Back Back exam: Reports: Normal inspection, Full ROM. Denies: Muscle spasm, Rash noted, Tenderness - Neurological Neurological exam: Alert, Normal gait, Oriented X3, Reflexes normal - Psychiatric Psychiatric exam: Normal affect, Normal mood - Skin Skin exam: Dry, Intact, Normal color, Warm <Justina Srivastava - Last Filed: 05/11/17 19:14> Course Vital Signs 05/11/17 17:03 Temperature 99.0 F Pulse Rate 88 Respiratory 20 Rate Blood Pressure 148/90 Pulse Ox 98 - Reevaluation(s) Reevaluation #1: 05/11/17 19:15 care being assumed by dr aldana <Justina Srivastava - Last Filed: 05/11/17 19:14> Vital Signs 05/11/17 17:03 Temperature 99.0 F Pulse Rate 88 Respiratory 20 Rate Blood Pressure 148/90 Pulse Ox 98 - Reevaluation(s) Reevaluation #2: 05/11/17 19:21 The patient was turned over at the bedside with Dr Srivastava The labs were reviewed. No acute changes on the CBC. The K is 3.2. Dr Srivastava ordered replacement The CT scan is pending at the time of the sign out. 05/11/17 21:[address] scan demonstrates mild TE thickening without any inflammatory changes or obstruction. The patient was informed of the results. She will be hydrated then likely DC home. 05/11/17 22:47 The IVF are finished The patient is ready for DC She is to call her PCP tomorrow and Gi for close follow up <ERIK ALDANA - Last Filed: 05/11/17 23:05> Medical Decision Making - Lab Data Result diagrams: 05/11/17 17:32 05/11/17 17:32 Lab Results 05/11/17 Range/Units 17:32 WBC 8.4 (4.2-12.2) K/uL RBC 5.17 (3.80-5.40) M/uL Hgb 14.0 (11.6-16.0) gm/dl Hct 45.2 (35.0-47.0) % MCV 87.4 (81-97) fl MCH 27.1 (27-33) pg MCHC 31.0 L (32-36) g/dl RDW 14.7 H (11.5-14.5) % Plt Count 280 (130-400) K/uL MPV 11.1 H (7.4-10.4) fl Gran % 75.6 (47-80) % Lymphocytes % 17.2 (16-45) % Monocytes % 5.1 (0-9) % Eosinophils % 1.7 (0-6) % Basophils % 0.4 (0-6) % <Justina Srivastava - Last Filed: 05/11/17 19:14> - Lab Data Result diagrams: 05/11/17 17:32 05/11/17 17:32 Lab Results 05/11/17 05/11/17 Range/Units 17:32 17:32 WBC 8.4 (4.2-12.2) K/uL RBC 5.17 (3.80-5.40) M/uL Hgb 14.0 (11.6-16.0) gm/dl Hct 45.2 (35.0-47.0) % MCV 87.4 (81-97) fl MCH 27.1 (27-33) pg MCHC 31.0 L (32-36) g/dl RDW 14.7 H (11.5-14.5) % Plt Count 280 (130-400) K/uL MPV 11.1 H (7.4-10.4) fl Gran % 75.6 (47-80) % Lymphocytes % 17.2 (16-45) % Monocytes % 5.1 (0-9) % Eosinophils % 1.7 (0-6) % Basophils % 0.4 (0-6) % Sodium 140 (136-145) mmol/L Potassium 3.2 L (3.4-4.5) mmol/L Chloride 98 (98-107) mmol/L Carbon Dioxide 30.0 H (22-29) mmol/L Anion Gap 12.0 (7-16) BUN 8 (6-20) mg/dL Creatinine 0.7 (0.5-0.9) mg/dL Estimated GFR > 60 mL/min Random Glucose 102 (74-109) mg/dL Calcium 9.3 (8.6-10.0) mg/dL Lipase 22 (13-60) U/L <ERIK ALDANA - Last Filed: 05/11/17 23:05> Disposition <Justina Srivastava - Last Filed: 05/11/17 19:14> Disposition: Discharge Time of Disposition: 22:48 <ERIK ALDANA - Last Filed: 05/11/17 23:05> Clinical Impression: Crohn disease, Nausea and vomiting Disposition: Home, Self-Care Condition: (1) Good Instructions: Abdominal Pain (ED) Additional Instructions: Rest and stay well hydrated Call your doctor tomorrow for cl9ose follow up Call your GI doctor's office for further evaluation as well. Prescriptions: Hydrocodone/Acetaminophen [[place] 5-325 Tablet] 1 each PO Q8H #18 tablet Ondansetron [Zofran Odt] 4 mg PO Q8H #15 tab.rapdis Forms: Patient Portal Access Quality - Quality Measures Quality Measures: N/A - Blood Pressure Screening Does Patient Have Any of the Following: No Blood Pressure Classification: Hypertensive Reading Systolic Measurement: 148 Diastolic Measurement: 90 Screening for High Blood Pressure: < First Hypertensive BP, F/U Documented > [ G8950] First Hypertensive Follow-up Interventions: Follow-up with rescreen GT 1 day and LT 4 weeks. <Justina Srivastava - Last Filed: 05/11/17 19:14> - Blood Pressure Screening Does Patient Have Any of the Following: No Blood Pressure Classification: Hypertensive Reading Systolic Measurement: 148 Diastolic Measurement: 90 Pre-Hypertensive Follow-up Interventions: Referral to alternative/primary care provider. <ERIK ALDANA - Last Filed: 05/11/17 23:05>
[2017-05-11] MEDS ORDERED: POTASSIUM CHLORIDE 20 MEQ/15ML CUP PO ONE (18:42)
[2017-05-11] MEDS ORDERED: ONDANSETRON HCL IV 4 MG/2 ML VIAL IVP ONE (19:14)
[2017-05-11 21:29] LABS: URINE APPEARANCE CLEAR; URINE BILIRUBIN NEGATIVE (NEGATIVE); URINE BLOOD NEGATIVE (NEGATIVE); URINE COLOR YELLOW; URINE GLUCOSE (UA) NEGATIVE (NEGATIVE); URINE KETONE NEGATIVE (NEGATIVE); URINE LEUKOCYTE ESTERASE NEGATIVE (NEGATIVE); URINE NITRITE NEGATIVE (NEGATIVE); URINE PROTEIN NEGATIVE (NEGATIVE); URINE UROBILINOGEN 0.2 E.U./dL (0.20 - 1.00)
[2017-05-11] MEDS ORDERED: HYDROCODONE/APAP 5/325MG TABLET PO ONE (22:45)
[2017-05-11] MEDS ORDERED: ONDANSETRON 4 MG ODT TABLET SL ONE (22:45)
--- NOTE | 2017-05-12 19:28 | CT SCAN REPORT ---
EXAM: CT SCAN ABDOMEN/PELVIS W CONTRAST HISTORY: ABDOMINAL PAIN FOR THREE WEEKS. TECHNIQUE: Sequential axial images were obtained from the diaphragms through the ischiorectal fossa after the intravenous administration of 100 mL of Omnipaque-300 contrast material. FINDINGS: Visualized lung bases appear normal. The patient is status post gastric bypass surgery. Liver, gallbladder, pancreas, and spleen appear normal. The adrenal glands and kidneys appear normal. No CT findings suggestive of obstructive uropathy. The urinary bladder appears normal. The small bowel appears normal. The uterus appears to be surgically absent. There is a cystic lesion in the expected region of the right ovary measuring 2.8 cm. The colon appears normal. The osseous structures appear normal. IMPRESSION: 1. NO CT FINDINGS SUGGESTIVE OF OBSTRUCTIVE UROPATHY. 2. A 2.8 CM CYSTIC LESION IN THE EXPECTED REGION OF THE RIGHT OVARY. THE UTERUS APPEARS TO BE SURGICALLY ABSENT. 3. POST-OP SURGICAL CHANGES CONSISTENT WITH GASTRIC BYPASS SURGERY. 4. NOT MENTIONED ABOVE IS EQUIVOCAL MILD WALL THICKENING OF THE TERMINAL ILEUM. THERE IS, HOWEVER, NO EVIDENCE OF OBSTRUCTION. JOB NUMBER: [id number] [facility]
== END 2017-05-11 23:12 | disposition home or self-care (01) ==
LOC: ER 16:17
DX: K50.90 Crohn's disease, unspecified, without complications (principal); R19.7 Diarrhea, unspecified; R11.2 Nausea with vomiting, unspecified; R10.9 Unspecified abdominal pain
CPT/HCPCS: 99284 ×2; 96376; 96374; 96375; 83690; 85025; 85651; 86140; 80048; 80053; 81003; 87427; 87493; 74177; Q9967; J2405; J1170; J7030

== ENCOUNTER 2018-04-30 18:15 | Emergency (ER) | payer BC ==
[2018-04-30] MEDS ORDERED: DEXAMETHASONE SOD PHOSPHATE 10MG/ML VIAL IVP ONE (18:40)
[2018-04-30] MEDS ORDERED: DIPHENHYDRAMINE HCL 50 MG/ML VIAL IVP ONE (18:40)
[2018-04-30] MEDS ORDERED: METOCLOPRAMIDE HCL 10 MG/2 ML VIAL IVP ONE (18:40)
[2018-04-30] MEDS ORDERED: KETOROLAC 30 MG/ML VIAL IVP ONE (18:40)
[2018-04-30] MEDS ORDERED: 0.9 % SODIUM CHLORIDE 1000ML 1,000 ML IV SCH (18:45)
--- NOTE | 2018-04-30 18:46 | Emergency Department Record ---
History of Present Illness - General Chief Complaint: Headache Migraine Stated Complaint: LIEBERMAN Time Seen by Provider: 04/30/18 18:40 Source: Patient Mode of Arrival: Ambulatory Limitations: No limitations - History of Present Illness Initial Comments: 48 yo female presents to ED for evaluation of a "migraine headache" that began 2 -3 days ago. Patient reports that she receives Botox for her symptoms but does report intermittent breakthrough headaches. Patient reports that her headache symptoms are similar to previous, denies fevers, chills, or stiff neck symptoms. Patient denies the use of anticoagulation medications as well. MD Complaint: Headache Onset/Timin -: Days(s) Onset Description: Gradual Location: Diffuse Severity: Moderate Quality: Throbbing, Similar to previous headaches Consistency: Constant Improves With: Nothing Worsens With: None Treatments Prior to Arrival: Migraine medication - Related Data Home Medications Medication Instructions Recorded Confirmed Last Taken Albuterol Sulfate [Proair Hfa] 2 puff INH Q4H PRN 04/30/18 04/30/18 Unknown Previous Rx's Medication Instructions Recorded Ondansetron [Zofran Odt] 4 mg PO Q8H #15 tab.rapdis 05/11/17 Allergies Allergy/AdvReac Type Severity Reaction Status Date / Time Penicillins Allergy PT UNSURE Verified 04/30/18 18:29 OF REACTION prochlorperazine AdvReac BEHAVIORAL Verified 04/30/18 18:29 [From Compazine] CHANGES prochlorperazine edisylate AdvReac BEHAVIORAL Verified 04/30/18 18:29 [From Compazine] CHANGES prochlorperazine maleate AdvReac BEHAVIORAL Verified 04/30/18 18:29 [From Compazine] CHANGES Review of Systems Constitutional: Denies: Chills, Fever, Malaise, Night sweats Eyes: Denies: Eye discharge, Eye pain ENT: Denies: Congestion, Ear pain, Epistaxis Respiratory: Denies: Cough, Dyspnea Cardiovascular: Denies: Chest pain, Dyspnea on exertion Endocrine: Denies: Fatigue, Heat or cold intolerance Gastrointestinal: Reports: Nausea. Denies: Abdominal pain, Vomiting Genitourinary: Denies: Incontinence, Retention Musculoskeletal: Denies: Arthralgia, Back pain Skin: Denies: Bruising, Change in color Neurological: Reports: Headache. Denies: Abnormal gait, Confusion, Seizure Psychiatric: Denies: Anxiety Hematological/Lymphatic: Denies: Anemia, Blood Clots Past Medical History - SOCIAL HISTORY Smoking Status: Never smoker Drug Use: None - RESPIRATORY Hx Respiratory Disorders: No - CARDIOVASCULAR Hx Cardio Disorders: No - NEURO Hx Neuro Disorders: Yes Hx Headaches: Yes Comment:: meniere's - GI Hx GI Disorders: Yes Hx Crohn's Disease: Yes Hx Reflux: Yes Hx Ulcer: Yes - Hx Genitourinary Disorders: Yes Hx Kidney Stones: Yes - ENDOCRINE Hx Endocrine Disorders: No - MUSCULOSKELETAL Hx Musculoskeletal Disorders: No - PSYCH Hx Psych Problems: No - HEMATOLOGY/ONCOLOGY Hx Hematology/Oncology Disorders: Yes Hx Anemia: Yes Physical Exam - General General Appearance: Alert, Oriented x3, Cooperative, Mild distress Limitations: No limitations - Head Head exam: Atraumatic, Normocephalic, Normal inspection Head exam detail: negative: Abrasion, Contusion, Rader's sign, General tenderness, Hematoma, Laceration - Eye Eye exam: Normal appearance. negative: Conjunctival injection, Periorbital swelling, Periorbital tenderness, Scleral icterus - ENT Ear exam: negative: Auricular hematoma, Auricular trauma Nasal Exam: negative: Active bleeding, Discharge, Dried blood, Foreign body Mouth exam: negative: Drooling, Laceration, Muffled voice, Tongue elevation - Neck Neck exam: Normal inspection. negative: Meningismus, Tenderness - Respiratory Respiratory exam: Normal lung sounds bilaterally. negative: Rales, Respiratory distress, Rhonchi, Stridor - Cardiovascular Cardiovascular Exam: Regular rate, Normal rhythm, Normal heart sounds - GI/Abdominal GI/Abdominal exam: Soft. negative: Rebound, Rigid, Tenderness - Rectal Rectal exam: Deferred - exam: Deferred - Extremities Extremities exam: Normal inspection. negative: Calf tenderness, Pedal edema, Tenderness - Back Back exam: Denies: CVA tenderness (R), CVA tenderness (L) - Neurological Neurological exam: Alert, Normal gait, Oriented X3 - Psychiatric Psychiatric exam: Normal affect, Normal mood - Skin Skin exam: Normal color. negative: Abrasion Type of lesion: negative: abrasion Course - Reevaluation(s) Reevaluation #1: 04/30/18 19:48 Patient was reassessed and reports that she is feeling much better, appears stable for discharge at this time. Disposition Disposition: Discharge Clinical Impression: Migraine Qualifiers: Migraine type: unspecified Status migrainosus presence: without status migrainosus Intractability: not intractable Qualified Code(s): G43.909 - Migraine, unspecified, not intractable, without status migrainosus Disposition: Home, Self-Care Condition: (2) Stable Instructions: Acute Headache (ED) Additional Instructions: Return to ED if your symptoms worsen or if you have any concerns. Follow-up with your family doctor in 3-5 days as directed. Forms: Patient Portal Access Time of Disposition: 19:48 Quality - Quality Measures Quality Measures: N/A, Headache (All Ages) - Headache: Neuroimaging Quality Measure: Measure #419: Overuse of Neuroimaging ICD10 Codes Entered: Yes Neurological Exam: Patient had a normal neurological exam. [G9535] Headache: Use of Neuroimaging: < CTA, CT, MRA or MRI was NOT ordered > [G9534] - Blood Pressure Screening Does Patient Have Any of the Following: No Blood Pressure Classification: Hypertensive Reading Systolic Measurement: 146 Diastolic Measurement: 95 Screening for High Blood Pressure: < First Hypertensive BP, F/U Documented > [ G8950] First Hypertensive Follow-up Interventions: Referral to alternative/primary care provider.
== END 2018-04-30 20:03 | disposition home or self-care (01) ==
LOC: ER 18:15
DX: G43.909 Migraine, unspecified, not intractable, without status migrainosus (principal)
CPT/HCPCS: 99284 ×2; 96374; 96375; J1885; J1100; J1200; J2765